=== PATIENT | male | born 1965 | race Caucasian/White ===

== ENCOUNTER 2020-03-22 06:30 | Day surgery (SDC) | payer OTHER ==
[~2020-03-22] VITALS: Ht 185.4 cm; Wt 77.1 kg
--- NOTE | 2020-03-22 08:17 | NUR ---
03/22/20 0817 [place] 0810- PT ARRIVES TO PACU AROUSABLE TO VOICE. PT REPORTS NO PAIN OR NAUSEA. PT FALLS TO SLEEP WHEN NOT BEING TALKED TO. RESP EVEN AND UNLABORED. PT NEEDING REMINDERS TO TAKE BREATHS. 0814- PT PASSING LARGE AMOUNTS OF FLATUS.
--- NOTE | 2020-03-22 08:35 | NUR ---
PT ALERT, ORIENTED AND MENTIONED HIS WILL PICK HIM UP FOLLOWING DC. PT COULD ON;Y RECALL ONE OTHER TIME IN HIS LIFE BEING IN HOSPITAL. HE SEEMED TO BE RATHER CALM, ALL QUESTIONS HE ASKED WERE ANSWERED.THIS IS HIS FIRST SCOPE PT REQUESTED PRAYER, WILL FOLLOW
--- NOTE | 2020-03-22 09:09 | OR ---
[facility] [address] [place], [place] [address] Signed DATE OF OPERATION: 03/22/2020 SURGEON: Paul Nash MD PREOPERATIVE DIAGNOSIS: Colon screening. POSTOPERATIVE DIAGNOSIS: Status post radiation therapy for prostate cancer. POSTOPERATIVE DIAGNOSIS: 1. Pandiverticulosis. 2. Hypertrophy of ileocecal valve. PROCEDURE: Total colonoscopy to cecum with biopsy of ileocecal valve. ANESTHESIA: Intravenous sedation, fentanyl 150 mcg and Versed 5 mg. INDICATIONS: This 54-year-old white man, is a patient of Dr. Ramirez. He was diagnosed with prostate cancer, and I saw him in July of 2019 anticipating screening colonoscopy. Due to the viral pandemic, his elective screening colonoscopy was delayed. He did undergo therapy for prostate cancer, which included radiation therapy by Dr. Pennington. His primary urologist is Dr. Fernandes and his primary provider is Dr. Ramirez. He has completed the therapy and is doing well. He remains symptom free as regards to colon, having no bleeding, diarrhea, or constipation. He has no family history of colon cancer. He is admitted at this time to undergo colonoscopy for screening. He understands the risks of bleeding, infection, and perforation. FINDINGS: The prep was good. Complete colonoscopy was undertaken to the cecum without question. He had diverticulosis throughout the colon, most dominantly in the sigmoid and left colon, there were some elsewhere including the right colon. The ileocecal valve had a somewhat hypertrophied appearance, it was not adenomatous and was not friable, but biopsy was obtained nevertheless. DESCRIPTION OF PROCEDURE: The patient was brought to the endoscopy suite and placed in lateral decubitus position Electronically Signed By: PAUL NASH MD 03/22/20 0909 PATIENT NAME: MARCO TAVARES OPERATIVE REPORT DATE OF : 65 REPORT #: [id number] PHYSICIAN: PAUL NASH MD PCP: SMITA RAMIREZ MD REPORT IS CONFIDENTIAL AND NOT TO BE RELEASED WITHOUT AUTHORIZATION [facility] [address] [place], [place] [address] Signed given intravenous sedation to the point of slurred speech and nystagmus. Digital rectal examination showed no abnormality. The prostate was somewhat flat, but not indurated nor with nodule. The Olympus video colonoscope was then passed into the rectum and manipulated throughout the colon, noting diverticula of the sigmoid and left colon. The scope was carefully passed and advanced ultimately to the cecum. The ileocecal valve had a somewhat hypertrophied appearance to a portion of it. The cecum was normal. Biopsies were taken of the hypertrophied portion. The scope was then withdrawn. Examination undertaken more fully. Diverticula were noted throughout the colon, most dominantly in the sigmoid. There was no sign of specific polyp, colitis, or other abnormality. Retroflexed view of the rectum was normal. The scope was removed. The patient was taken to the recovery room in good condition. CONCLUDING DIAGNOSES: 1. Diverticulosis. 2. Hypertrophy of ileocecal valve. PLAN: Recommend repeat colonoscopy no longer than 10 years out, sooner if clinically indicated. MD YOVANI Cooper/ARMANDO /[id number] cc: Nilda Pennington MD, PH.D. MD Smita Baltazar MD Copies: NILDA PENNINGTON JOHN MD Electronically Signed By: PAUL NASH MD 03/22/20 0909 PATIENT NAME: MARCO TAVARES OPERATIVE REPORT DATE OF : 65 REPORT #: [id number] PHYSICIAN: PAUL NASH MD PCP: SMITA RAMIREZ MD REPORT IS CONFIDENTIAL AND NOT TO BE RELEASED WITHOUT AUTHORIZATION [address] [address] Signed SMITA RAMIRZE MD ~ Electronically Signed By: PAUL NASH MD 03/22/20 0909 PATIENT NAME: MARCO TAVARES OPERATIVE REPORT DATE OF : 65 REPORT #: [id number] PHYSICIAN: PAUL NASH MD PCP: SMITA RAMIREZ MD REPORT IS CONFIDENTIAL AND NOT TO BE RELEASED WITHOUT AUTHORIZATION
--- NOTE | 2020-03-23 15:41 | PATH ---
[facility] [facility] [address] [place], [place] [address] Signed SPECIMEN(S): A ILEOCECAL VALVE SPECIMEN SOURCE: A. ILEOCECAL VALVE CLINICAL HISTORY: Screening colonoscopy. Diverticulosis, hyperplasia of ileocecal valve. MICROSCOPIC DESCRIPTION: Histologic sections of all submitted blocks are examined by light microscopy. These findings, together with the gross examination, support the pathologic diagnosis. FINAL PATHOLOGIC DIAGNOSIS: Ileocecal valve, biopsy: - Colonic mucosa with no histopathologic abnormality. - Negative for dysplasia or malignancy. NAL:em:C2NR GROSS DESCRIPTION: The specimen, labeled "JE, 1," and designated on the requisition "ileocecal valve," is received in formalin and consists of one moran soft tissue fragment that measures 0.3 cm in greatest dimension. The specimen is entirely submitted in cassette (A1). AT (under the direct supervision of a pathologist) The Gross Description was prepared using a voice recognition system. The report was reviewed for accuracy; however, sound-alike word errors, addition and/or deletions may occur. If there is any question about this report, please contact Client Services. PERFORMING LABORATORY: The technical component was performed by [facility], [address] [place] [id number] (Top Cleaner: Ami Whitfield MD; CLIA# [id number]). [facility], [address] [address] (CLIA# [id number]). Diagnostician: Sunita Demarco MD Pathologist Electronically Signed 03/23/2020 PATIENT NAME: MARCO TAVARES PATHOLOGY DATE OF : 65 REPORT #: [id number] PHYSICIAN: [facility] PCP: SMITA WEEMS MD REPORT IS CONFIDENTIAL AND NOT TO BE RELEASED WITHOUT AUTHORIZATION [address] [place] [address] Signed Copies: ~ PATIENT NAME: MARCO TAVARES PATHOLOGY DATE OF : 65 REPORT #: [id number] PHYSICIAN: [facility] PCP: SMITA WEEMS MD REPORT IS CONFIDENTIAL AND NOT TO BE RELEASED WITHOUT AUTHORIZATION
== END 2020-03-22 09:25 | disposition home or self-care (01) ==
LOC: OPS 06:30 → DS 06:30 → OPS 06:45 → DS 06:45 → OPS 09:25
PROVIDERS: ATTEND Surgery
PROC: 0DBC8ZX Excision of Ileocecal Valve, Via Natural or Artificial Opening Endoscopic, Diagnostic (ICD-10-PCS; principal; 2020-03-22 06:45)
DX: Z12.11 Encounter for screening for malignant neoplasm of colon (principal); K57.30 Diverticulosis of large intestine without perforation or abscess without bleeding; Z85.46 Personal history of malignant neoplasm of prostate
CPT/HCPCS: 99153; G0500; J2250; J3010; J7121